=== PATIENT | female | born 1975 | race African-American/Black ===

== ENCOUNTER 2023-03-10 07:22 | Emergency (ER) | payer OTHER ==
[~2023-03-10] VITALS: Ht 157.5 cm; Wt 91.4 kg
[~2023-03-10 07:22] MED LIST: NOCURR
[2023-03-10 07:25] VITALS: TEMP 98.3
[2023-03-10] MEDS ORDERED: METHOCARBAMOL 500 MG TABLET PO ONE (08:00)
[2023-03-10] MEDS ORDERED: KETOROLAC TROMETHAMINE 60 MG/2 ML VIAL IM ONE (08:00)
[2023-03-10] MEDS ORDERED: IBUP-1492 PO (08:40)
[2023-03-10] MEDS ORDERED: METH-659 PO (08:43)
[2023-03-10 09:15] VITALS: BP 138/85; PULSE 85; RESP 12
== END 2023-03-10 09:25 | disposition home or self-care (01) ==
LOC: EMS 07:42
DX: M54.50 Low back pain, unspecified (principal); Z90.710 Acquired absence of both cervix and uterus; Z98.890 Other specified postprocedural states
CPT/HCPCS: 99283; 96372; J1885

== ENCOUNTER 2023-05-29 20:21 | Emergency (ER) | payer OTHER ==
[~2023-05-29] VITALS: Ht 157.5 cm; Wt 90.9 kg
[~2023-05-29 20:21] MED LIST changes: +IBUP-1492 PO; +METH-659 PO; -NOCURR
[2023-05-29 20:24] VITALS: BP 129/78; PULSE 76; RESP 16; TEMP 98.3
[2023-05-29 20:59] LABS: BASOPHILS % (AUTO) 0.8 % (0.0-2.0); EOSINOPHILS % (AUTO) 3.8 % (1.0-6.0); HEMATOCRIT 41.5 % (36-46); HEMOGLOBIN 13.9 g/dL (12.0-16.0); LYMPHOCYTES # (AUTO) 3.2 K/uL (1.0-4.8); LYMPHOCYTES % (AUTO) 51.8 % (22.0-44.0); MEAN CORPUSCULAR HEMOGLOBIN 30.2 pg (26.0-34.0); MEAN CORPUSCULAR HGB CONC 33.6 G/dL (31.0-37.0); MEAN CORPUSCULAR VOLUME 90 fL (80-100); MONOCYTES # (AUTO) 0.4 K/uL (0.1-1.0); MONOCYTES % (AUTO) 6.5 % (2.0-9.0); NEUTROPHILS # (AUTO) 2.3 K/uL (1.8-7.7); NEUTROPHILS % (AUTO) 37.1 % (40.0-70.0); PLATELET COUNT (AUTO) 257 K/uL (150-450); RED BLOOD CELL COUNT(AUTO) 4.62 MIL/uL (4.00-5.20); RED CELL DISTRIBUTION WIDTH 13.6 % (11.5-14.5); WHITE BLOOD COUNT (AUTO) 6.1 K/uL (4.5-11.0)
[2023-05-29 21:14] LABS: ANION GAP 9 mmol/L (8-16); CALCIUM, TOTAL 8.8 mg/dL (8.8-10.5); CARBON DIOXIDE 28 mmol/L (22-29); CHLORIDE 104 mmol/L (98-107); CREATININE 1.05 mg/dL (0.60-1.30); GLOMERULAR FILTR. RATE CALC > 60 mL/min (>60); GLUCOSE,RANDOM 98 mg/dL (70-110); POTASSIUM 3.9 mmol/L (3.5-5.1); SODIUM SERUM 141 mmol/L (136-145); UREA NITROGEN, BLOOD 11 mg/dL (7-18)
[2023-05-29 21:29] LABS: ALANINE AMINOTRANSFERASE 15 U/L (12-78); ALBUMIN 3.5 g/dL (3.4-5.0); ALKALINE PHOSPHATASE 66 U/L (46-116); ASPARTATE AMINOTRANSFERASE 17 U/L (15-37); BILIRUBIN,TOTAL 0.4 mg/dL (0.1-1.0); LIPASE 31 U/L (16-77); TOTAL PROTEIN, SERUM 7.3 g/dL (6.4-8.2)
[2023-05-29] MEDS ORDERED: IBUP-1492 PO (23:05)
[2023-05-29] MEDS ORDERED: IBUPROFEN 600 MG TABLET PO ONE (23:15)
== END 2023-05-29 23:10 | disposition home or self-care (01) ==
LOC: EMS 20:24
DX: G44.209 Tension-type headache, unspecified, not intractable (principal); Z90.710 Acquired absence of both cervix and uterus; Z98.890 Other specified postprocedural states
CPT/HCPCS: 80053; 83690; 85025; 99283